=== PATIENT | female | born 1985 | race Caucasian/White ===

== ENCOUNTER 2017-07-07 21:44 | Emergency (ER) | payer MEDICAID ==
--- NOTE | 2017-07-07 22:22 | Emergency Department Record ---
History of Present Illness - General Chief Complaint: Abdominal Pain Stated Complaint: ABDOMINAL PAIN,BLOOD IN BANDAR Time Seen by Provider: 07/07/17 21:46 Source: Patient Mode of Arrival: Ambulatory Limitations: No limitations - History of Present Illness Initial Comments: 32 yo female presents to ED for evaluation of abdominal pain for the past "1.5 to 2 years". Patient reports that she has been evaluated for her symptoms by numerous providers, reports "one doctor thinks its gas, another thinks it's fluid". Patient reports recent constipation symptoms as well that she took mineral oil to relieve at home without success, she is unsure of her last BM. Patient reports that "it feels like I am 9 months ". Patient denies fevers, chills, or recent illness. Patient denies urinary symptoms or current . MD Complaint: Abdominal pain Onset/Timin -: Week(s) Location: Diffuse Quality: Cramping Consistency: Intermittent Associated Symptoms: Nausea - Related Data Home Medications Medication Instructions Recorded Confirmed Last Taken Buprenorphine HCl/Naloxone HCl 1 each SL TID 07/07/17 07/07/17 Unknown [Suboxone 8 mg-2 mg Sl Film] Dicyclomine HCl [Bentyl] 10 mg PO Q8H PRN 07/07/17 07/07/17 Unknown Furosemide [Lasix] 20 mg PO DAILY 07/07/17 07/07/17 Unknown Hydrocortisone [Cortef] 40 mg PO DAILY 07/07/17 07/07/17 Unknown Metformin HCl [Metformin HCl] 500 mg PO BID 07/07/17 07/07/17 Unknown Omeprazole [Omeprazole] 40 mg PO BID 07/07/17 07/07/17 Unknown Ondansetron HCl [Zofran] 8 mg PO Q6H PRN 07/07/17 07/07/17 Unknown Phentermine HCl [Phentermine HCl] 0.5 tab PO DAILY 07/07/17 07/07/17 Unknown Previous Rx's Medication Instructions Recorded Magnesium Citrate 295 ml PO DAILY PRN #10 solution 07/07/17 Allergies Allergy/AdvReac Type Severity Reaction Status Date / Time No Known Drug Allergies Allergy Verified 07/07/17 21:59 Travel Screening - Travel/Exposure Within Last 30 Days Have you traveled within the last 30 days?: No - Travel Symptoms Symptom Screening: None Review of Systems Constitutional: Denies: Chills, Fever, Malaise, Night sweats Eyes: Denies: Eye discharge, Eye pain ENT: Denies: Congestion, Ear pain, Epistaxis Respiratory: Denies: Cough, Dyspnea Cardiovascular: Denies: Chest pain, Dyspnea on exertion Endocrine: Denies: Fatigue, Heat or cold intolerance Gastrointestinal: Reports: Abdominal pain, Constipation, Nausea. Denies: Vomiting Genitourinary: Denies: Incontinence, Retention Musculoskeletal: Denies: Arthralgia, Back pain Skin: Denies: Bruising, Change in color Neurological: Denies: Abnormal gait, Confusion, Headache, Seizure Psychiatric: Denies: Anxiety Hematological/Lymphatic: Denies: Anemia, Blood Clots Past Medical History - SOCIAL HISTORY Smoking Status: Current every day smoker Drug Use Detail:: Opiates - RESPIRATORY Hx Respiratory Disorders: Yes Hx Asthma: Yes - CARDIOVASCULAR Hx Cardio Disorders: No - NEURO Hx Neuro Disorders: Yes Hx Dizziness: Yes Hx Headaches: Yes - GI Hx GI Disorders: Yes Hx Celiac Disease: Yes Hx Reflux: Yes - Hx Genitourinary Disorders: No - ENDOCRINE Hx Endocrine Disorders: Yes Hx Diabetes: Yes Hx Thyroid Disease: Yes Comment:: Adrenal insufficiency - MUSCULOSKELETAL Hx Musculoskeletal Disorders: No - PSYCH Hx Psych Problems: Yes Hx Anxiety: Yes Hx Depression: Yes - HEMATOLOGY/ONCOLOGY Hx Hematology/Oncology Disorders: No Family Medical History Any Significant Family History?: Yes Family Hx Comment (NOT TO BE USED IN PLACE OF ITEMS BELOW): Grandmother, Uncle and Aunt- brain aneurysm Physical Exam - General General Appearance: Alert, Oriented x3, Cooperative, No acute distress, Other ( Patient is resting comfortably conversing with friend at the bedside in no distress) Limitations: No limitations - Head Head exam: Atraumatic, Normocephalic, Normal inspection Head exam detail: negative: Abrasion, Contusion, Gaming's sign, General tenderness, Hematoma, Laceration - Eye Eye exam: Normal appearance. negative: Conjunctival injection, Periorbital swelling, Periorbital tenderness, Scleral icterus - ENT Ear exam: negative: Auricular hematoma, Auricular trauma Nasal Exam: negative: Active bleeding, Discharge, Dried blood, Foreign body Mouth exam: negative: Drooling, Laceration, Tongue elevation - Neck Neck exam: Normal inspection. negative: Meningismus, Tenderness - Respiratory Respiratory exam: Normal lung sounds bilaterally. negative: Rales, Respiratory distress, Rhonchi, Stridor - Cardiovascular Cardiovascular Exam: Regular rate, Normal rhythm, Normal heart sounds - GI/Abdominal GI/Abdominal exam: Soft, Distended, Other (Abdominal examination demonstrates no tenderness on examination). negative: Rebound, Rigid, Tenderness - Rectal Rectal exam: Deferred - exam: Deferred - Extremities Extremities exam: Normal inspection. negative: Calf tenderness, Pedal edema, Tenderness - Neurological Neurological exam: Alert, Oriented X3 - Psychiatric Psychiatric exam: Normal affect, Normal mood - Skin Skin exam: Normal color. negative: Abrasion Type of lesion: negative: abrasion Course Vital Signs 07/07/17 21:53 Temperature 98.2 F Pulse Rate [ 117 H Pulse Ox Probe] Respiratory 20 Rate Blood Pressure 122/91 [Left Arm] Pulse Ox 96 - Reevaluation(s) Reevaluation #1: 07/07/17 22:14 Previous records reviewed from 07/04/17 PCP Visit for joint pain, fatigue, and headache symptoms (no report or abdominal pain) Labs reviewed 07/04/17: WBC 13.1, Hgb 14.3. CRP 0.8. Labs are otherwise grossly unremarkable for an acute process. ED visit 05/13/17 [place]: CT Abdomen and Pelvis: No acute process ED Visit 06/23/17: CT Brain: No acute process Reevaluation #2: 07/07/17 22:29 Patient was seen and examined, abdominal examination is benign. Patient is declining laboratory studies at this time, reports "I just want to know if I have an obstruction". Abdomen radiographs ordered. Reevaluation #3: 07/07/17 23:05 Abdomen: Findings are c/w constipation, no-obstructive gas pattern. Patient has left to walk outside, will update her on her results when she returns. Medical Decision Making - Lab Data Result diagrams: 07/07/17 22:10 07/07/17 22:10 Disposition Disposition: Discharge Clinical Impression: Constipation Qualifiers: Constipation type: unspecified constipation type Qualified Code(s): K59.00 - Constipation, unspecified Disposition: Home, Self-Care Condition: (2) Stable Instructions: Constipation (ED) Additional Instructions: Return to ED if your symptoms worsen or if you have any concerns. Magnesium Citrate as directed. Follow-up with your family doctor in 3-5 days as directed. Prescriptions: Magnesium Citrate 295 ml PO DAILY PRN #10 solution PRN Reason: Constipation Forms: Patient Portal Access Time of Disposition: 23:08 Quality - Quality Measures Quality Measures: N/A - Blood Pressure Screening Does Patient Have Any of the Following: No Blood Pressure Classification: Normal BP Reading Systolic Measurement: 106 Diastolic Measurement: 68 Screening for High Blood Pressure: < Normal BP, F/U Not Required > [G8783]
[2017-07-07 22:45] LABS: URINE APPEARANCE CLEAR; URINE BILIRUBIN NEGATIVE (NEGATIVE); URINE BLOOD MODERATE (NEGATIVE); URINE COLOR YELLOW; URINE GLUCOSE (UA) NEGATIVE (NEGATIVE); URINE KETONE NEGATIVE (NEGATIVE); URINE LEUKOCYTE ESTERASE NEGATIVE (NEGATIVE); URINE NITRITE NEGATIVE (NEGATIVE); URINE PROTEIN NEGATIVE (NEGATIVE); URINE UROBILINOGEN 0.2 E.U./dL (0.20 - 1.00)
[2017-07-07 22:46] LABS: URINE BACTERIA NONE SEEN; URINE EPITHELIAL CELLS 0 - 2 (FEW); URINE WBC 0 - 2 (0-2/hpf)
[2017-07-07 22:50] LABS: HCG,QUALITATIVE URINE NEGATIVE (NEGATIVE)
--- NOTE | 2017-07-08 10:26 | RADIOLOGY REPORT ---
EXAM: ABDOMEN, FOUR VIEWS HISTORY: ABDOMINAL CRAMPING FOR ONE WEEK. TECHNIQUE: Four views of the abdomen were obtained. Comparison: None. FINDINGS: No free air. Abundant fecal material throughout the colon. Small amount of gas throughout nondistended small bowel. No suspicious calcification. IMPRESSION: 1. CONSTIPATION. 2. NO FREE AIR. JOB NUMBER: [id number] MTDD
== END 2017-07-07 23:23 | disposition home or self-care (01) ==
LOC: ER 21:44
DX: K59.00 Constipation, unspecified (principal); R11.0 Nausea; R10.9 Unspecified abdominal pain
CPT/HCPCS: 74020; 81001; 81025; 99283; 99284

== ENCOUNTER 2017-08-14 08:51 | Emergency (ER) | payer MEDICAID ==
[2017-08-14] MEDS ORDERED: 0.9 % SODIUM CHLORIDE 1,000 ML BAG IV ONE (09:16)
[2017-08-14] MEDS ORDERED: DIPHENHYDRAMINE HCL IV 50 MG/ML VIAL IVP ONE (09:17)
[2017-08-14] MEDS ORDERED: METOCLOPRAMIDE HCL 10 MG/2 ML VIAL IVP ONE (09:17)
--- NOTE | 2017-08-14 09:28 | Emergency Department Record ---
History of Present Illness - General Chief Complaint: Abdominal Pain Stated Complaint: CONSTIPATION Time Seen by Provider: 08/14/17 09:03 Source: Patient Mode of Arrival: Ambulatory Limitations: No limitations - History of Present Illness Initial Comments: The patient states she is here due to AP and bloating with constipation for 1.5 years which has been worse for a month. She now is only to have very small bowel movements. She denies any nausea, vomiting, or fever but does have crampy pain off and on. The patient states she was in the ER about a month ago for it here at [facility] and was discharged with a bottle of MG Citrate. Additionally she state she has had a migraine CUI. The patient states she has had similar CUI's for years and they have been worse for 5 months. She has seen her PCP for it and had a CT scan done. Additionally she has had visual changes and double vision which now is not new. She has seen an eye doctor and was told she does have visual issues. The CUI today is not new and is a global thobbing CUI with mild photophobia. There is no neck stiffness, nausea, speech or balance issues and the patient did drive here to [facility]. MD Complaint: Abdominal pain Onset/Timin -: Month(s) Consistency: Constant Improves With: Nothing Worsens With: Nothing Associated Symptoms: Constipation - Related Data Home Medications Medication Instructions Recorded Confirmed Last Taken Levothyroxine Sodium [Synthroid] 50 mcg PO DAILY 08/14/17 08/14/17 08/14/17 Previous Rx's Medication Instructions Recorded Magnesium Citrate 295 ml PO DAILY PRN #10 solution 07/07/17 Docusate Sodium [Colace] 100 mg PO BID #28 cap 08/14/17 Allergies Allergy/AdvReac Type Severity Reaction Status Date / Time No Known Drug Allergies Allergy Verified 07/07/17 21:59 Travel Screening - Travel/Exposure Within Last 30 Days Have you traveled within the last 30 days?: No - Travel/Exposure Within Last Year Have you traveled outside the [place] in the last year?: No - Additonal Travel Details Have you been exposed to anyone with a communicable illness?: No - Travel Symptoms Symptom Screening: None Review of Systems Constitutional: Denies: Chills, Fever Eyes: Denies: Eye discharge ENT: Denies: Congestion Respiratory: Denies: Cough, Dyspnea Past Medical History - SOCIAL HISTORY Smoking Status: Current every day smoker Alcohol Use: None Drug Use: None - RESPIRATORY Hx Respiratory Disorders: Yes Hx Asthma: Yes - CARDIOVASCULAR Hx Cardio Disorders: No - NEURO Hx Neuro Disorders: Yes Hx Dizziness: Yes Hx Headaches: Yes - GI Hx GI Disorders: Yes Hx Celiac Disease: Yes Hx Reflux: Yes - Hx Genitourinary Disorders: No - ENDOCRINE Hx Endocrine Disorders: Yes Hx Diabetes: Yes Hx Thyroid Disease: Yes Comment:: Adrenal insufficiency - MUSCULOSKELETAL Hx Musculoskeletal Disorders: No - PSYCH Hx Psych Problems: Yes Hx Anxiety: Yes Hx Depression: Yes - HEMATOLOGY/ONCOLOGY Hx Hematology/Oncology Disorders: No Family Medical History Any Significant Family History?: No Family Hx Comment (NOT TO BE USED IN PLACE OF ITEMS BELOW): Grandmother, Uncle and Aunt- brain aneurysm Physical Exam - General General Appearance: Alert, Oriented x3, Cooperative, No acute distress - Head Head exam: Atraumatic, Normocephalic, Normal inspection - Eye Eye exam: Normal appearance, PERRL, EOMI - ENT Throat exam: Normal inspection. negative: Tonsillar erythema, Tonsillar exudate - Neck Neck exam: Normal inspection, Full ROM. negative: Meningismus (The neck is very supple. There is a neg Kernig's and Brudsinski's tests.), Tenderness - Respiratory Respiratory exam: Normal lung sounds bilaterally. negative: Respiratory distress - Cardiovascular Cardiovascular Exam: Regular rate, Normal rhythm, Normal heart sounds - GI/Abdominal GI/Abdominal exam: Soft, Distended (mildly.). negative: Guarding, Pulsatile mass, Rebound, Rigid, Tenderness - Extremities Extremities exam: Normal inspection, Full ROM, Normal capillary refill. negative: Tenderness - Neurological Neurological exam: Alert, Normal gait, Oriented X3, Reflexes normal. negative: Abnormal gait, Altered, Motor sensory deficit - Psychiatric Psychiatric exam: Normal affect, Normal mood. negative: Agitated, Anxious, Depressed - Skin Skin exam: negative: Rash Course Vital Signs 08/14/17 08:54 Temperature 97.9 F Pulse Rate 97 H Respiratory 20 Rate Blood Pressure 133/82 Pulse Ox 96 - Reevaluation(s) Reevaluation #1: The patient states she is doing much better at this time. Her CUI has almost completely resolved and she denies any AP or nausea. We are waiting on the CT results. 08/14/17 10:13 Reevaluation #2: The patient is doing very well at this time. She was sleeping when I entered the room and her CUI has resolved. I did explain to her the CT does NOT demonstrate any obstruction or surgical pathology. I also explained her lab results to her and did recommend the need for F/U with her PCP and GI doctors for further eval. 08/14/17 10:51 Medical Decision Making - Data Complexity MDM Data: Labs Ordered and/or Reviewed, X-Ray Ordered and/or Reviewed - Lab Data Result diagrams: 08/14/17 09:15 08/14/17 09:15 - Radiology Data Radiology results: Report reviewed (CT: Neg obstruction, Colonic constipation.) Disposition Disposition: Discharge Clinical Impression: Constipation Qualifiers: Constipation type: unspecified constipation type Qualified Code(s): K59.00 - Constipation, unspecified Disposition: Home, Self-Care Condition: (2) Stable Instructions: Constipation (ED) Additional Instructions: Please take the Colace as directed and also use the Duclox Supp. as directed. Take 1/2 bottle of Mg Citrate in the AM and 1/2 in the evening. Please see your PCP for recheck next week and to have the MRI ordered. Please see your GI doctor also KATHERINE. Return to the ER for any worsening symptoms, pain, fever, or vomiting. Prescriptions: Docusate Sodium [Colace] 100 mg PO BID #28 cap Forms: Patient Portal Access Time of Disposition: 10:48 Quality - Quality Measures Quality Measures: N/A - Blood Pressure Screening View Details: Yes Does Patient Have Any of the Following: No Blood Pressure Classification: Pre-Hypertensive BP Reading Systolic Measurement: 133 Diastolic Measurement: 82 Screening for High Blood Pressure: < Pre-Hypertensive BP, F/U Documented > [ G8950] Pre-Hypertensive Follow-up Interventions: Referral to alternative/primary care provider.
[2017-08-14 09:34] LABS: BASO % 0.1 % (0-6); EOS % 2.7 % (0-6); GRAN % 64.3 % (47-80); HEMATOCRIT 42.8 % (35.0-47.0); HEMOGLOBIN 13.5 gm/dl (11.6-16.0); LYMPH % 25.6 % (16-45); MEAN CELL VOLUME 99.8 fl (81-97); MEAN CORPUSCULAR HEMOGLOBIN 31.5 pg (27-33); MEAN CORPUSCULAR HGB CONC 31.5 g/dl (32-36); MEAN PLATELET VOLUME 8.9 fl (7.4-10.4); MONO % 7.3 % (0-9); PLATELET COUNT 297 K/uL (130-400); RED BLOOD COUNT 4.29 M/uL (3.80-5.40); RED CELL DISTRIBUTION WIDTH 12.9 % (11.5-14.5); WHITE BLOOD COUNT W/O DIFF 8.8 K/uL (4.2-12.2)
[2017-08-14 09:35] LABS: URINE APPEARANCE CLEAR; URINE BILIRUBIN NEGATIVE (NEGATIVE); URINE BLOOD SMALL (NEGATIVE); URINE COLOR YELLOW; URINE GLUCOSE (UA) NEGATIVE (NEGATIVE); URINE KETONE NEGATIVE (NEGATIVE); URINE LEUKOCYTE ESTERASE NEGATIVE (NEGATIVE); URINE NITRITE NEGATIVE (NEGATIVE); URINE PROTEIN NEGATIVE (NEGATIVE); URINE UROBILINOGEN 0.2 E.U./dL (0.20 - 1.00)
[2017-08-14 09:39] LABS: HCG,QUALITATIVE URINE NEGATIVE (NEGATIVE)
[2017-08-14 09:47] LABS: URINE AMORPHOUS SEDIMENT 1+; URINE EPITHELIAL CELLS 0 - 2 (FEW); URINE WBC 0 - 2 (0-2/hpf)
[2017-08-14 09:48] LABS: BLOOD UREA NITROGEN 7 mg/dL (6-20); CREATININE 0.8 mg/dL (0.5-0.9); EST GLOMERULAR FILTRATION RATE > 60 mL/min
[2017-08-14 09:49] LABS: TOTAL PROTEIN 6.5 g/dL (6.6-8.7)
[2017-08-14 09:51] LABS: GLUCOSE,RANDOM 121 mg/dL (74-109)
[2017-08-14 09:53] LABS: ALT/SGPT 41 U/L (<33)
[2017-08-14 09:54] LABS: ALBUMIN 3.9 g/dL (4.0-5.0); ALKALINE PHOSPHATASE 107 U/L (35-104); AST/SGOT 38 U/L (10.0-35.0); BILIRUBIN,DIRECT < 0.2 mg/dL (0-0.3); LIPASE 18 U/L (13-60)
[2017-08-14] MEDS ORDERED: MAGNESIUM CITRATE 296 ML BTL PO ONE (10:49)
--- NOTE | 2017-08-14 21:09 | CT SCAN REPORT ---
EXAM: CT SCAN ABDOMEN/PELVIS WO CONTRAST HISTORY: CONSTIPATION. FATIGUE. TECHNIQUE: Helical CT examination of the abdomen and pelvis is performed without oral or intravenous contrast administration. Lack of oral and IV contrast utilization limits evaluation of the bowel and solid viscera, respectively. COMPARISON: Two views of the abdomen dated 07/07/2017. FINDINGS: There is mild dependent atelectasis in each lung base. There is a band of atelectasis within the medial aspect of the right middle lobe and there is linear scarring vs atelectasis within the lingula. No pleural or pericardial effusion. The heart is not enlarged. There are areas of decreased density scattered within the liver relative to the spleen consistent with steatosis. No definite hepatic mass. The spleen, pancreas , adrenal glands, and kidneys are without focal abnormality. The renal collecting systems are not dilated. The gallbladder is surgically absent. No biliary ductal dilatation is seen. No intraabdominal nor retroperitoneal lymphadenopathy is demonstrated. The vasculature is normal in appearance. There is a dominant follicle within the right ovary measuring 1.8 cm. No other evidence of pelvic mass, lymphadenopathy, or free pelvic fluid. The uterus is in the midline. No intrinsic urinary bladder abnormality. There is a large amount of stool within the colon. No gross bowel dilatation nor definite bowel wall thickening. The appendix is visualized and normal in appearance. No lytic or blastic bone lesion. IMPRESSION: 1. NO CT EVIDENCE OF AN ACUTE INTRAABDOMINAL NOR INTRAPELVIC PROCESS. 2. DOMINANT FOLLICLE WITHIN THE RIGHT OVARY MEASURING 1.8 CM IN DIAMETER. 3. NORMAL APPENDIX. 4. NOT MENTIONED ABOVE IS A TINY FAT-FILLED PARAUMBILICAL HERNIA APPEARING UNCOMPLICATED. 5. STATUS POST CHOLECYSTECTOMY. 6. HEPATIC STEATOSIS. 7. MILD DEPENDENT ATELECTASIS IN EACH LUNG BASE. ATELECTASIS OR LESS LIKELY INFILTRATE IN THE MEDIAL SEGMENT OF THE RIGHT MIDDLE LOBE. LINEAR SCARRING VS. ATELECTASIS IN THE LINGULA. 8. LARGE AMOUNT OF STOOL WITHIN THE COLON. JOB NUMBER: [id number] [facility]
== END 2017-08-14 10:57 | disposition home or self-care (01) ==
LOC: ER 08:51
DX: K59.00 Constipation, unspecified (principal); R53.83 Other fatigue; R51 Headache; H53.149 Visual discomfort, unspecified
CPT/HCPCS: 74176; 80048; 80076; 81001; 81025; 83690; 85025; 96374; 96375; 99284; J1200; J2765; J7030

== ENCOUNTER 2017-08-20 17:49 | Emergency (ER) | payer MEDICAID ==
[2017-08-20 18:51] LABS: INFLUENZA A NEGATIVE (NEGATIVE); INFLUENZA B NEGATIVE (NEGATIVE)
[2017-08-20] MEDS: 0.9 % SODIUM CHLORIDE 1,000 ML BAG IV ONE (20:15)
[2017-08-20 20:23] LABS: URINE APPEARANCE CLEAR; URINE BILIRUBIN NEGATIVE (NEGATIVE); URINE BLOOD MODERATE (NEGATIVE); URINE COLOR YELLOW; URINE GLUCOSE (UA) NEGATIVE (NEGATIVE); URINE KETONE NEGATIVE (NEGATIVE); URINE LEUKOCYTE ESTERASE TRACE (NEGATIVE); URINE NITRITE NEGATIVE (NEGATIVE); URINE PROTEIN NEGATIVE (NEGATIVE); URINE UROBILINOGEN 0.2 E.U./dL (0.20 - 1.00)
[2017-08-20 20:30] LABS: GRAN % 45.4 % (47-80); HEMATOCRIT 41.1 % (35.0-47.0); HEMOGLOBIN 13.2 gm/dl (11.6-16.0); MEAN CELL VOLUME 98.3 fl (81-97); MEAN CORPUSCULAR HEMOGLOBIN 31.6 pg (27-33); MEAN CORPUSCULAR HGB CONC 32.1 g/dl (32-36); MEAN PLATELET VOLUME 8.9 fl (7.4-10.4); MONO % 7.6 % (0-9); PLATELET COUNT 296 K/uL (130-400); RED BLOOD COUNT 4.18 M/uL (3.80-5.40); RED CELL DISTRIBUTION WIDTH 12.5 % (11.5-14.5); WHITE BLOOD COUNT W/O DIFF 10.1 K/uL (4.2-12.2)
[2017-08-20 20:33] LABS: URINE BACTERIA NONE SEEN; URINE RBC 0 - 2 (NONE SEEN); URINE WBC 0 - 2 (0-2/hpf)
[2017-08-20] MEDS: PROMETHAZINE HCL 25 MG in 0.9 % SODIUM CHLORIDE 100ML 100 ML IVPB ONE (20:47)
[2017-08-20] MEDS: KETOROLAC 30 MG/ML VIAL IVP ONE (20:48)
[2017-08-20 20:49] LABS: ALBUMIN 4.1 g/dL (4.0-5.0); ALKALINE PHOSPHATASE 103 U/L (35-104); ALT/SGPT 50 U/L (<33); AST/SGOT 41 U/L (10.0-35.0); BLOOD UREA NITROGEN 3 mg/dL (6-20); CREATININE 0.7 mg/dL (0.5-0.9); EST GLOMERULAR FILTRATION RATE > 60 mL/min; GLUCOSE,RANDOM 100 mg/dL (74-109); TOTAL PROTEIN 6.7 g/dL (6.6-8.7)
[2017-08-20 20:50] LABS: BILIRUBIN,DIRECT < 0.2 mg/dL (0-0.3)
--- NOTE | 2017-08-20 21:53 | Emergency Department Record ---
History of Present Illness - General Chief complaint: Flu Like Symptoms Stated complaint: NAUSEA,DIARRHEA,MIGRAINE Time Seen by Provider: 08/20/17 20:01 Source: Patient Mode of Arrival: Ambulatory Limitations: No limitations - History of Present Illness Initial comments: pt has headaches every day. she had a recent neg head ct at [facility]. she also feels she is dehydrated and wants 2 bags of iv fluids. she also feels she has something in her rectum and she wants it checked MD Complaint: Generalized weakness Onset/Timin -: Month(s) Severity: Moderate Severity scale (1-10): 7 Quality: Aching Consistency: Constant Associated Symptoms: Denies other symptoms - [place] Coma Scale Eye Response: (4) Open spontaneously Motor Response: (6) Obeys commands Verbal Response: (5) Oriented [place] Total: 15 - Related Data Allergies Allergy/AdvReac Type Severity Reaction Status Date / Time No Known Drug Allergies Allergy Verified 07/07/17 21:59 Travel Screening - Travel/Exposure Within Last 30 Days Have you traveled within the last 30 days?: No - Travel/Exposure Within Last Year Have you traveled outside the [place] in the last year?: No - Additonal Travel Details Have you been exposed to anyone with a communicable illness?: No - Travel Symptoms Symptom Screening: None Review of Systems Reviewed: No additional complaints except as noted below Constitutional: Reports: As per HPI, Weakness. Denies: Chills, Fever, Malaise, Night sweats, Weight change Eyes: Reports: As per HPI. Denies: Eye discharge, Eye pain, Photophobia, Vision change ENT: Reports: As per HPI. Denies: Congestion, Dental pain, Ear pain, Epistaxis , Hearing loss, Throat pain Respiratory: Reports: As per HPI. Denies: Cough, Dyspnea, Hemoptysis, Stridor, Wheezes Cardiovascular: Reports: As per HPI. Denies: Arrhythmia, Chest pain, Dyspnea on exertion, Edema, Murmurs, Orthopnea, Palpitations, Paroxysmal nocturnal dyspnea, Rheumatic Fever, Syncope Endocrine: Reports: As per HPI, Fatigue. Denies: Heat or cold intolerance, Polydipsia, Polyuria Gastrointestinal: Reports: As per HPI. Denies: Abdominal pain, Constipation, Diarrhea, Hematemesis, Hematochezia, Melena, Nausea, Vomiting Genitourinary: Reports: As per HPI. Denies: Abnormal menses, Discharge, Dyspareunia, Dysuria, Frequency, Hematuria, Incontinence, Retention, Urgency Musculoskeletal: Reports: As per HPI. Denies: Arthralgia, Back pain, Gout, Joint swelling, Myalgia, Neck pain Skin: Reports: As per HPI. Denies: Bruising, Change in color, Change in hair/ nails, Lesions, Pruritus, Rash Neurological: Reports: As per HPI, Headache. Denies: Abnormal gait, Confusion, Numbness, Paresthesias, Seizure, Tingling, Tremors, Vertigo, Weakness Psychiatric: Reports: As per HPI. Denies: Anxiety, Auditory hallucinations, Depression, Homicidal thoughts, Suicidal thoughts, Visual hallucinations Hematological/Lymphatic: Reports: As per HPI. Denies: Anemia, Blood Clots, Easy bleeding, Easy bruising, Swollen glands Past Medical History - SOCIAL HISTORY Smoking Status: Current every day smoker Alcohol Use: None Drug Use: None - RESPIRATORY Hx Respiratory Disorders: Yes Hx Asthma: Yes - CARDIOVASCULAR Hx Cardio Disorders: No - NEURO Hx Neuro Disorders: Yes Hx Dizziness: Yes Hx Headaches: Yes - GI Hx GI Disorders: Yes Hx Celiac Disease: Yes Hx Reflux: Yes - Hx Genitourinary Disorders: No - ENDOCRINE Hx Endocrine Disorders: Yes Hx Diabetes: Yes Hx Thyroid Disease: Yes Comment:: Adrenal insufficiency - MUSCULOSKELETAL Hx Musculoskeletal Disorders: No - PSYCH Hx Psych Problems: Yes Hx Anxiety: Yes Hx Depression: Yes - HEMATOLOGY/ONCOLOGY Hx Hematology/Oncology Disorders: No Family Medical History Any Significant Family History?: Yes Family Hx Comment (NOT TO BE USED IN PLACE OF ITEMS BELOW): Grandmother, Uncle and Aunt- brain aneurysm Physical Exam - General General Appearance: Alert, Oriented x3, Cooperative, Mild distress - Head Head exam: Normal inspection - Eye Eye exam: Normal appearance, PERRL, EOMI Pupils: Normal accommodation - ENT ENT exam: Normal exam, Mucous membranes moist, Normal external ear exam, Normal orophraynx, TM's normal bilaterally Ear exam: Normal external inspection. negative: External canal tenderness Nasal Exam: Normal inspection. negative: Discharge, Sinus tenderness Mouth exam: Normal external inspection, Tongue normal Teeth exam: Normal inspection. negative: Dental caries Throat exam: Normal inspection. negative: Tonsillar erythema, Tonsillar exudate - Neck Neck exam: Normal inspection, Full ROM. negative: Tenderness - Respiratory Respiratory exam: Normal lung sounds bilaterally. negative: Respiratory distress - Cardiovascular Cardiovascular Exam: Regular rate, Normal rhythm, Normal heart sounds - GI/Abdominal GI/Abdominal exam: Soft, Normal bowel sounds. negative: Tenderness - Rectal Rectal exam: Normal inspection, Normal rectal tone - exam: Deferred - Extremities Extremities exam: Normal inspection, Full ROM, Normal capillary refill. negative: Tenderness - Back Back exam: Reports: Normal inspection, Full ROM. Denies: Muscle spasm, Rash noted, Tenderness - Neurological Neurological exam: Alert, Normal gait, Oriented X3, Reflexes normal - Psychiatric Psychiatric exam: Normal affect, Normal mood - Skin Skin exam: Dry, Intact, Normal color, Warm Course Vital Signs 08/20/17 08/20/17 18:33 21:22 Temperature 97.8 F 98.2 F Pulse Rate 85 Pulse Rate [ 80 Pulse Ox Probe] Respiratory 18 18 Rate Blood Pressure 125/90 Blood Pressure 137/92 [Left Arm] Pulse Ox 95 96 Medical Decision Making - Lab Data Result diagrams: 08/20/17 20:15 08/20/17 20:15 Lab Results 08/20/17 08/20/17 08/20/17 Range/Units 18:25 20:06 20:15 WBC 10.1 (4.2-12.2) K/uL RBC 4.18 (3.80-5.40) M/uL Hgb 13.2 (11.6-16.0) gm/dl Hct 41.1 (35.0-47.0) % MCV 98.3 H (81-97) fl MCH 31.6 (27-33) pg MCHC 32.1 (32-36) g/dl RDW 12.5 (11.5-14.5) % Plt Count 296 (130-400) K/uL MPV 8.9 (7.4-10.4) fl Gran % 45.4 L (47-80) % Lymphocytes % 45.0 (16-45) % Monocytes % 7.6 (0-9) % Eosinophils % 2.0 (0-6) % Basophils % 0.0 (0-6) % Sodium (136-145) mmol/L Potassium (3.4-4.5) mmol/L Chloride (98-107) mmol/L Carbon Dioxide (22-29) mmol/L Anion Gap (7-16) BUN (6-20) mg/dL Creatinine (0.5-0.9) mg/dL Estimated GFR mL/min Random Glucose (74-109) mg/dL Calcium (8.6-10.0) mg/dL Total Bilirubin Cancelled Direct Bilirubin Cancelled AST Cancelled ALT Cancelled Alkaline Phosphatase Cancelled Total Protein Cancelled Albumin Cancelled Urine Color Urine Appearance Urine pH (5.0-8.0) Ur Specific [place] (1.002-1.030) Urine Protein (NEGATIVE) Urine Glucose (UA) (NEGATIVE) Urine Ketones (NEGATIVE) Urine Blood (NEGATIVE) Urine Nitrite (NEGATIVE) Urine Bilirubin (NEGATIVE) Urine Urobilinogen (0.20 - 1.00) E.U./dL Ur Leukocyte Esterase (NEGATIVE) Urine RBC (NONE SEEN) Urine WBC (0-2/hpf) Ur Epithelial Cells (FEW) Urine Bacteria Influenza Type A Ag Negative (NEGATIVE) Influenza Type B Ag Negative (NEGATIVE) 08/20/17 08/20/17 Range/Units 20:15 20:15 WBC (4.2-12.2) K/uL RBC (3.80-5.40) M/uL Hgb (11.6-16.0) gm/dl Hct (35.0-47.0) % MCV (81-97) fl MCH (27-33) pg MCHC (32-36) g/dl RDW (11.5-14.5) % Plt Count (130-400) K/uL MPV (7.4-10.4) fl Gran % (47-80) % Lymphocytes % (16-45) % Monocytes % (0-9) % Eosinophils % (0-6) % Basophils % (0-6) % Sodium 140 (136-145) mmol/L Potassium 3.5 (3.4-4.5) mmol/L Chloride 96 L (98-107) mmol/L Carbon Dioxide 31.0 H (22-29) mmol/L Anion Gap 13.0 (7-16) BUN 3 L (6-20) mg/dL Creatinine 0.7 (0.5-0.9) mg/dL Estimated GFR > 60 mL/min Random Glucose 100 (74-109) mg/dL Calcium 9.1 (8.6-10.0) mg/dL Total Bilirubin 0.20 Direct Bilirubin < 0.2 AST 41 H ALT 50 H Alkaline Phosphatase 103 Total Protein 6.7 Albumin 4.1 Urine Color Yellow Urine Appearance Clear Urine pH 7.0 (5.0-8.0) Ur Specific [place] <= 1.005 (1.002-1.030) Urine Protein Negative (NEGATIVE) Urine Glucose (UA) Negative (NEGATIVE) Urine Ketones Negative (NEGATIVE) Urine Blood Moderate (NEGATIVE) Urine Nitrite Negative (NEGATIVE) Urine Bilirubin Negative (NEGATIVE) Urine Urobilinogen 0.2 (0.20 - 1.00) E.U./dL Ur Leukocyte Esterase Trace H (NEGATIVE) Urine RBC 0 - 2 (NONE SEEN) Urine WBC 0 - 2 (0-2/hpf) Ur Epithelial Cells 3 - 6 (FEW) Urine Bacteria None seen Influenza Type A Ag (NEGATIVE) Influenza Type B Ag (NEGATIVE) Disposition Disposition: Discharge Clinical Impression: Migraine Qualifiers: Migraine type: without aura Status migrainosus presence: without status migrainosus Intractability: not intractable Qualified Code(s): G43.009 - Migraine without aura, not intractable, without status migrainosus Disposition: Home, Self-Care Condition: (1) Good Instructions: Migraine Headache (ED) Additional Instructions: follow up with neurologist. return sooner if worse. follow up with gi doctor Quality - Quality Measures Quality Measures: N/A - Blood Pressure Screening Does Patient Have Any of the Following: No Blood Pressure Classification: Hypertensive Reading Systolic Measurement: 125 Diastolic Measurement: 90 Screening for High Blood Pressure: < Pre-Hypertensive BP, F/U Documented > [ G8950] Pre-Hypertensive Follow-up Interventions: Follow-up with rescreen every year.
== END 2017-08-20 22:19 | disposition home or self-care (01) ==
LOC: ER 17:49
DX: G43.009 Migraine without aura, not intractable, without status migrainosus (principal); R53.1 Weakness; R11.0 Nausea; R19.7 Diarrhea, unspecified
CPT/HCPCS: 80048; 80076; 81001; 85025; 87400; 96374; 96375; 99284; J1885; J2550; J7030

== ENCOUNTER 2017-08-26 18:03 | Emergency (ER) | payer MEDICAID ==
--- NOTE | 2017-08-26 18:44 | Emergency Department Record ---
History of Present Illness - General Chief Complaint: Headache Migraine Stated Complaint: MIGRAINE,FLUCTUATING HEART RATE,CONFUSION Time Seen by Provider: 08/26/17 18:39 Source: Patient Mode of Arrival: Ambulatory Limitations: No limitations - History of Present Illness Initial Comments: 32 yo female presents to ED for evaluation of numerous complaint, including: intermittent headaches since April 2017, intermittent fluctuations in her heart beat for several months, and intermittent confusion/difficulty in concentrating for several months. Patient denies fevers, chills, neck stiffness symptoms, or recent illness. Patient denies nausea/vomiting symptoms , denies abdominal pain. Patient reports a history of hypothyroidism and migraine headaches. When asked what her PCP believes if going on with her, patient reports "I don't know, she doesn't tell me anything". Complaint: Headache Onset/Timin -: Days(s) Onset Description: Gradual Location: Occipital Severity: Mild Severity scale (1-10): 9 Quality: Aching, Similar to previous headaches Consistency: Constant Improves With: Nothing Worsens With: Light Associated Symptoms: Photophobia Treatments Prior to Arrival: None - Related Data Allergies Allergy/AdvReac Type Severity Reaction Status Date / Time No Known Drug Allergies Allergy Verified 07/07/17 21:59 Travel Screening - Travel/Exposure Within Last 30 Days Have you traveled within the last 30 days?: No Review of Systems Constitutional: Denies: Chills, Fever, Malaise, Night sweats Eyes: Reports: Photophobia. Denies: Eye discharge, Eye pain ENT: Denies: Congestion, Epistaxis, Hearing loss Respiratory: Denies: Cough, Dyspnea Cardiovascular: Reports: Palpitations. Denies: Chest pain, Dyspnea on exertion Endocrine: Denies: Fatigue, Heat or cold intolerance Gastrointestinal: Denies: Nausea, Vomiting Genitourinary: Denies: Incontinence, Retention Musculoskeletal: Denies: Arthralgia, Back pain, Gout, Joint swelling Skin: Denies: Bruising, Change in color Neurological: Reports: Confusion, Headache. Denies: Abnormal gait Psychiatric: Denies: Anxiety Hematological/Lymphatic: Denies: Anemia, Blood Clots Past Medical History - SOCIAL HISTORY Smoking Status: Current every day smoker Alcohol Use: None Drug Use: None - RESPIRATORY Hx Respiratory Disorders: Yes Hx Asthma: Yes - CARDIOVASCULAR Hx Cardio Disorders: No - NEURO Hx Neuro Disorders: Yes Hx Dizziness: Yes Hx Headaches: Yes - GI Hx GI Disorders: Yes Hx Celiac Disease: Yes Hx Reflux: Yes - Hx Genitourinary Disorders: No - ENDOCRINE Hx Endocrine Disorders: Yes Hx Diabetes: Yes Hx Thyroid Disease: Yes Comment:: Adrenal insufficiency - MUSCULOSKELETAL Hx Musculoskeletal Disorders: No - PSYCH Hx Psych Problems: Yes Hx Anxiety: Yes Hx Depression: Yes - HEMATOLOGY/ONCOLOGY Hx Hematology/Oncology Disorders: No Family Medical History Any Significant Family History?: Yes Family Hx Comment (NOT TO BE USED IN PLACE OF ITEMS BELOW): Grandmother, Uncle and Aunt- brain aneurysm Physical Exam - General General Appearance: Alert, Oriented x3, Cooperative, No acute distress Limitations: No limitations - Head Head exam: Atraumatic, Normocephalic, Normal inspection Head exam detail: negative: Abrasion, Contusion, Gaming's sign, General tenderness, Hematoma, Laceration - Eye Eye exam: Normal appearance. negative: Conjunctival injection, Periorbital swelling, Periorbital tenderness, Scleral icterus - ENT Ear exam: negative: Auricular hematoma, Auricular trauma Nasal Exam: negative: Active bleeding, Discharge, Dried blood, Foreign body Mouth exam: negative: Drooling, Laceration, Muffled voice, Tongue elevation - Neck Neck exam: Normal inspection. negative: Meningismus, Tenderness - Respiratory Respiratory exam: Normal lung sounds bilaterally. negative: Respiratory distress, Rhonchi, Stridor, Wheezes - Cardiovascular Cardiovascular Exam: Regular rate, Normal rhythm, Normal heart sounds, Other ( Pulse 99-102 on examination) - GI/Abdominal GI/Abdominal exam: Soft. negative: Rebound, Rigid, Tenderness - Rectal Rectal exam: Deferred - exam: Deferred - Extremities Extremities exam: Normal inspection. negative: Pedal edema, Tenderness - Neurological Neurological exam: Alert, Normal gait, Oriented X3 - Psychiatric Psychiatric exam: Flat affect - Skin Skin exam: Normal color. negative: Abrasion Type of lesion: negative: abrasion Course Vital Signs 08/26/17 08/26/17 18:19 18:29 Temperature 97.6 F Pulse Rate 110 H Pulse Rate [ 115 H Pulse Ox Probe] Respiratory 18 20 Rate Blood Pressure 118/77 Blood Pressure 118/77 [Left Arm] Pulse Ox 96 95 - Reevaluation(s) Reevaluation #1: 08/26/17 18:41 Patient was seen and examined, reports intermittent headache symptoms since April associated with difficulty concentrating. Patient also reports intermittent variability of her heart rate for several months as well. I discussed performing laboratory studies and an influenza swab for her symptoms, patient declines stating "if your not going to get a CT of my head, I would rather go home and rest". Patient reports that she is upset that she was not updated on the results of her recent CT imaging of the abdomen and pelvis and that she had "to get a disc and put it in my own computer at home. No told me that I have a fatty liver or a hernia." I offered to review the patient's CT imaging from 1 1/2 weeks ago, patient declined stating that she just wants to go home and rest. I offered to contact the patient's PCP as well, patient declined. Per patient request, will discharge home at this time. EKG: NSR 100 Normal axis, normal intervals Nonspecific ST-T wave changes are present. Disposition Disposition: Discharge Clinical Impression: Headache Qualifiers: Headache type: unspecified Headache chronicity pattern: acute headache Intractability: not intractable Qualified Code(s): R51 - Headache Disposition: Home, Self-Care Condition: (2) Stable Instructions: Acute Headache (ED) Additional Instructions: Return to ED if your symptoms worsen or if you have any concerns. Follow-up with your family doctor in 3-5 days for further evaluation of your symptoms. Forms: Patient Portal Access Time of Disposition: 18:41 Quality - Quality Measures Quality Measures: N/A - Blood Pressure Screening Does Patient Have Any of the Following: No Blood Pressure Classification: Normal BP Reading Systolic Measurement: 118 Diastolic Measurement: 77 Screening for High Blood Pressure: < Normal BP, F/U Not Required > [G8783]
== END 2017-08-26 18:53 | disposition home or self-care (01) ==
LOC: ER 18:03
DX: R51 Headache (principal); R06.00 Dyspnea, unspecified; H53.149 Visual discomfort, unspecified; R41.0 Disorientation, unspecified; R00.8 Other abnormalities of heart beat; F17.210 Nicotine dependence, cigarettes, uncomplicated
CPT/HCPCS: 99282

== ENCOUNTER 2017-09-05 11:28 | Emergency (ER) | payer MEDICAID | END 2017-09-05 12:23 | disposition left against medical advice (07) | LOC: ER 11:28 | DX: Z53.20 Procedure and treatment not carried out because of patient's decision for unspecified reasons (principal) ==

== ENCOUNTER 2017-09-07 17:59 | Emergency (ER) | payer MEDICAID ==
--- NOTE | 2017-09-07 18:18 | Emergency Department Record ---
History of Present Illness - General Chief Complaint: Chest Pain Stated Complaint: FAINTED Time Seen by Provider: 09/07/17 18:03 Source: Patient Mode of Arrival: EMS Limitations: No limitations Travel/Exposure to [place] Within 21 Days of Symptoms: No - History of Present Illness Initial Comments: 32 yo female presents to ED for evaluation of possible syncope prior to arrival. When asked about what brought her to the ED tonight, patient reports "All of my undiagnosed health problems" . Patient reports that she was running a bath, then reports "I don't remember what happened after that". Patient denies a history of heart or lung disease, but does report a history of Moo' s and migraine headaches. Patient also reports several chronic issues, including; abdominal pain "for a while", worsening migraines for months with change in vision, body aches all over, "I think my body is shutting down on me". Complaint: Other Onset/Timin -: Minutes(s) Prodromal Symptoms: None Witnessed: No Injuries Sustained Associated with Event: None Current Symptoms: Abdominal pain, Headache, Weakness Treatments Prior to Arrival: None - [place] Coma Scale Eye Response: (4) Open spontaneously Motor Response: (6) Obeys commands Verbal Response: (5) Oriented [place] Total: 15 - Related Data Allergies Allergy/AdvReac Type Severity Reaction Status Date / Time No Known Drug Allergies Allergy Verified 07/07/17 21:59 Review of Systems Constitutional: Reports: Weakness. Denies: Chills, Fever, Malaise, Night sweats Eyes: Denies: Eye discharge, Eye pain ENT: Denies: Congestion, Ear pain, Epistaxis Respiratory: Denies: Cough, Dyspnea Cardiovascular: Reports: Syncope. Denies: Dyspnea on exertion, Edema Endocrine: Reports: Fatigue. Denies: Heat or cold intolerance Gastrointestinal: Reports: Abdominal pain, Nausea. Denies: Vomiting Genitourinary: Denies: Incontinence, Retention Musculoskeletal: Denies: Arthralgia, Back pain, Gout, Joint swelling Skin: Denies: Bruising, Change in color Neurological: Reports: Headache. Denies: Abnormal gait, Confusion, Tingling Psychiatric: Denies: Anxiety Hematological/Lymphatic: Denies: Anemia, Blood Clots Past Medical History - SOCIAL HISTORY Smoking Status: Current every day smoker Drug Use: None - RESPIRATORY Hx Respiratory Disorders: Yes Hx Asthma: Yes - CARDIOVASCULAR Hx Cardio Disorders: No - NEURO Hx Neuro Disorders: Yes Hx Dizziness: Yes Hx Headaches: Yes - GI Hx GI Disorders: Yes Hx Celiac Disease: Yes Hx Reflux: Yes - Hx Genitourinary Disorders: No - ENDOCRINE Hx Endocrine Disorders: Yes Hx Diabetes: Yes Hx Thyroid Disease: Yes Comment:: Adrenal insufficiency - MUSCULOSKELETAL Hx Musculoskeletal Disorders: No - PSYCH Hx Psych Problems: Yes Hx Anxiety: Yes Hx Depression: Yes - HEMATOLOGY/ONCOLOGY Hx Hematology/Oncology Disorders: No Family Medical History Family Hx Comment (NOT TO BE USED IN PLACE OF ITEMS BELOW): Grandmother, Uncle and Aunt- brain aneurysm Physical Exam - General General Appearance: Alert, Oriented x3, Cooperative, Mild distress Limitations: No limitations - Head Head exam: Atraumatic, Normocephalic, Normal inspection Head exam detail: negative: Abrasion, Contusion, Gaming's sign, General tenderness, Hematoma, Laceration - Eye Eye exam: Normal appearance. negative: Conjunctival injection, Periorbital swelling, Periorbital tenderness, Scleral icterus - ENT Ear exam: negative: Auricular hematoma, Auricular trauma Nasal Exam: negative: Active bleeding, Discharge, Dried blood, Foreign body Mouth exam: negative: Drooling, Laceration, Tongue elevation - Neck Neck exam: Normal inspection. negative: Meningismus, Tenderness - Respiratory Respiratory exam: Normal lung sounds bilaterally. negative: Respiratory distress, Rhonchi, Stridor, Wheezes - Cardiovascular Cardiovascular Exam: Regular rate, Normal rhythm, Normal heart sounds - GI/Abdominal GI/Abdominal exam: Soft. negative: Distended, Rebound, Rigid, Tenderness - Rectal Rectal exam: Deferred - exam: Deferred - Extremities Extremities exam: Normal inspection. negative: Calf tenderness, Pedal edema, Tenderness - Back Back exam: Denies: CVA tenderness (R), CVA tenderness (L) - Neurological Neurological exam: Alert, Normal gait, Oriented X3 - Psychiatric Psychiatric exam: Normal affect, Normal mood - Skin Skin exam: Normal color. negative: Abrasion Type of lesion: negative: abrasion Course - Reevaluation(s) Reevaluation #1: 09/07/17 18:18 EKG: NSR 90 Normal axis, normal intervals T wave inversions V1-V5 Reevaluation #2: 09/07/17 18:59 Labs reviewed and are grossly unremarkable for an acute process. In to answer questions that that the patient's SO has with nursing staff present as witness, patient reports that we are not treating her adrenal insufficiency in the emergency department and we are "doing the same blood tests that you guys always do". I explained to the patient that >95% causes are cardiogenic, that she were were performing a cardiac evaluation tonight. Patient states "I have a hernia too that you are not doing anything about". Juliette-umbical region was palpated with no evidence for hernia. Patient then states "you told me I was fine to go home 2 years ago after I went out to smoke a cigarette". I replied that I do not remember seeing the patient two years ago nor do I recall any interaction with her at that time. I again explained to the patient the limitations of the ED and that we are able to exclude life- threatening disease states, however, at times we cannot find the exact reason for the constellation of her symptoms. Patient reports that she does not want to stay for her repeat cardiac enzyme test at 3 hours, and that she would like to go at this time. Nursing staff was present for the entire discussion with the patient. Medical Decision Making - Lab Data Result diagrams: 09/07/17 18:10 09/07/17 18:10 Disposition Disposition: Other Clinical Impression: Syncope Qualifiers: Syncope type: unspecified Qualified Code(s): R55 - Syncope and collapse Disposition: Against Medical Advice Instructions: Syncope (ED) Additional Instructions: Return to ED if you wish to be evaluated for you syncope symptoms. Follow-up with your family doctor in 1-3 days as directed. Forms: Patient Portal Access Time of Disposition: 19:06 Quality - Quality Measures Quality Measures: N/A - Blood Pressure Screening Does Patient Have Any of the Following: Active Dx of HTN Systolic Measurement: ~ Screening for High Blood Pressure: Patient Exclusion, Hx of HTN [G9744]
[2017-09-07 18:31] LABS: EOS % 0.5 % (0-6); GRAN % 68.9 % (47-80); HEMATOCRIT 42.1 % (35.0-47.0); HEMOGLOBIN 14.1 gm/dl (11.6-16.0); LYMPH % 26.1 % (16-45); MEAN CELL VOLUME 96.8 fl (81-97); MEAN CORPUSCULAR HEMOGLOBIN 32.4 pg (27-33); MEAN CORPUSCULAR HGB CONC 33.5 g/dl (32-36); MEAN PLATELET VOLUME 9.3 fl (7.4-10.4); MONO % 4.5 % (0-9); PLATELET COUNT 299 K/uL (130-400); RED BLOOD COUNT 4.35 M/uL (3.80-5.40); RED CELL DISTRIBUTION WIDTH 12.5 % (11.5-14.5); WHITE BLOOD COUNT W/O DIFF 11.3 K/uL (4.2-12.2)
[2017-09-07 18:43] LABS: INFLUENZA A NEGATIVE (NEGATIVE); INFLUENZA B NEGATIVE (NEGATIVE)
[2017-09-07 18:45] LABS: BLOOD UREA NITROGEN 7 mg/dL (6-20); CREATININE 0.7 mg/dL (0.5-0.9); EST GLOMERULAR FILTRATION RATE > 60 mL/min
[2017-09-07 18:47] LABS: GLUCOSE,RANDOM 111 mg/dL (74-109)
[2017-09-07 18:50] LABS: ALB/GLOB RATIO 1.3 (1.1-1.8); ALKALINE PHOSPHATASE 124 U/L (35-104); ALT/SGPT 31 U/L (<33); AST/SGOT 34 U/L (10.0-35.0)
== END 2017-09-07 19:40 | disposition left against medical advice (07) ==
LOC: ER 17:59
DX: R55 Syncope and collapse (principal); R10.33 Periumbilical pain; R51 Headache; R53.1 Weakness; E27.1 Primary adrenocortical insufficiency; F17.210 Nicotine dependence, cigarettes, uncomplicated
CPT/HCPCS: 80053; 84484; 85025; 87400; 93005; 93010; 99284

== ENCOUNTER 2017-10-21 16:30 | Emergency (ER) | payer MEDICAID ==
--- NOTE | 2017-10-21 17:24 | Emergency Department Record ---
History of Present Illness - General Chief complaint: ENT Stated complaint: SORE THROAT,CHEST CONGESTION,RT LEG/HIP PAIN Time Seen by Provider: 10/21/17 17:09 Source: Patient Mode of Arrival: Ambulatory Limitations: No limitations - History of Present Illness Initial comments: pt has green congestion, sinus pressure, cough, sore throat. pt is currently wearing a 21 day monitor for tachy rhythms complaint: Ear pain, Sore throat Onset/Timin -: Days(s) Location: Throat Severity: Mild Consistency: Constant Improves with: None Worsens with: None Associated Symptoms: Cough, Sore throat - Related Data Home Medications Medication Instructions Recorded Confirmed Last Taken Estradiol 1 each TD ASDIR 10/21/17 10/21/17 Unknown Previous Rx's Medication Instructions Recorded Amoxicillin 500Mg Capsule [Amoxil] 500 mg PO TID #30 tab 10/21/17 Allergies Allergy/AdvReac Type Severity Reaction Status Date / Time No Known Drug Allergies Allergy Verified 10/21/17 16:51 Travel Screening - Travel/Exposure Within Last 30 Days Have you traveled within the last 30 days?: No Review of Systems Reviewed: No additional complaints except as noted below Constitutional: Reports: As per HPI. Denies: Chills, Fever, Malaise, Night sweats, Weakness, Weight change Eyes: Reports: As per HPI. Denies: Eye discharge, Eye pain, Photophobia, Vision change ENT: Reports: As per HPI, Throat pain. Denies: Congestion, Dental pain, Ear pain, Epistaxis, Hearing loss Respiratory: Reports: As per HPI. Denies: Cough, Dyspnea, Hemoptysis, Stridor, Wheezes Cardiovascular: Reports: As per HPI. Denies: Arrhythmia, Chest pain, Dyspnea on exertion, Edema, Murmurs, Orthopnea, Palpitations, Paroxysmal nocturnal dyspnea, Rheumatic Fever, Syncope Endocrine: Reports: As per HPI. Denies: Fatigue, Heat or cold intolerance, Polydipsia, Polyuria Gastrointestinal: Reports: As per HPI. Denies: Abdominal pain, Constipation, Diarrhea, Hematemesis, Hematochezia, Melena, Nausea, Vomiting Genitourinary: Reports: As per HPI. Denies: Abnormal menses, Discharge, Dyspareunia, Dysuria, Frequency, Hematuria, Incontinence, Retention, Urgency Musculoskeletal: Reports: As per HPI. Denies: Arthralgia, Back pain, Gout, Joint swelling, Myalgia, Neck pain Skin: Reports: As per HPI. Denies: Bruising, Change in color, Change in hair/ nails, Lesions, Pruritus, Rash Neurological: Reports: As per HPI. Denies: Abnormal gait, Confusion, Headache, Numbness, Paresthesias, Seizure, Tingling, Tremors, Vertigo, Weakness Psychiatric: Reports: As per HPI. Denies: Anxiety, Auditory hallucinations, Depression, Homicidal thoughts, Suicidal thoughts, Visual hallucinations Hematological/Lymphatic: Reports: As per HPI. Denies: Anemia, Blood Clots, Easy bleeding, Easy bruising, Swollen glands Past Medical History - SOCIAL HISTORY Smoking Status: Current every day smoker Alcohol Use: None Drug Use: None - RESPIRATORY Hx Respiratory Disorders: Yes Hx Asthma: Yes - CARDIOVASCULAR Hx Cardio Disorders: No - NEURO Hx Neuro Disorders: Yes Hx Dizziness: Yes Hx Headaches: Yes - GI Hx GI Disorders: Yes Hx Celiac Disease: Yes Hx Reflux: Yes - Hx Genitourinary Disorders: Yes Comment:: follicular ovarian cyst, pt states she's in menopause - ENDOCRINE Hx Endocrine Disorders: Yes Hx Diabetes: Yes Hx Thyroid Disease: Yes Comment:: Adrenal insufficiency - MUSCULOSKELETAL Hx Musculoskeletal Disorders: No - PSYCH Hx Psych Problems: Yes Hx Anxiety: Yes Hx Depression: Yes - HEMATOLOGY/ONCOLOGY Hx Hematology/Oncology Disorders: No Family Medical History Any Significant Family History?: Yes Family Hx Comment (NOT TO BE USED IN PLACE OF ITEMS BELOW): Grandmother, Uncle and Aunt- brain aneurysm Course Vital Signs 10/21/17 16:51 Temperature 97.6 F Pulse Rate 115 H Respiratory 20 Rate Blood Pressure 127/93 Pulse Ox 95 Disposition Disposition: Discharge Clinical Impression: Sinus infection Qualifiers: Sinusitis location: maxillary Chronicity: acute Recurrence: non-recurrent Qualified Code(s): J01.00 - Acute maxillary sinusitis, unspecified Disposition: Home, Self-Care Condition: (1) Good Instructions: Sinusitis (ED) Additional Instructions: follow up with family doctor. return sooner if worse Prescriptions: Amoxicillin 500Mg Capsule [Amoxil] 500 mg PO TID #30 tab Quality - Quality Measures Quality Measures: N/A - Blood Pressure Screening Does Patient Have Any of the Following: No Blood Pressure Classification: Hypertensive Reading Systolic Measurement: 127 Diastolic Measurement: 93 Screening for High Blood Pressure: < Pre-Hypertensive BP, F/U Documented > [ G8950] Pre-Hypertensive Follow-up Interventions: Follow-up with rescreen every year.
== END 2017-10-21 17:44 | disposition home or self-care (01) ==
LOC: ER 16:30
DX: J01.00 Acute maxillary sinusitis, unspecified (principal); R05 Cough; J02.9 Acute pharyngitis, unspecified; R00.0 Tachycardia, unspecified; F17.210 Nicotine dependence, cigarettes, uncomplicated
CPT/HCPCS: 99282

== ENCOUNTER 2017-10-25 20:48 | Emergency (ER) | payer MEDICAID ==
[2017-10-25] MEDS ORDERED: DIPHENHYDRAMINE HCL 25 MG CAPSULE PO ONE (21:25)
[2017-10-25] MEDS ORDERED: PREDNISONE 20 MG TAB PO ONE (21:25)
--- NOTE | 2017-10-25 21:47 | Emergency Department Record ---
History of Present Illness - General Chief complaint: ENT Stated complaint: SORE THROAT Time Seen by Provider: 10/25/17 21:18 Source: Patient Mode of Arrival: Ambulatory Limitations: No limitations - History of Present Illness Initial comments: pt has been on amoxicillin for 4 days for a sore throat and cough. she feels she is getting no better and in fact she thinks shes worse. she has a productive cough with blood in it that looks like old blood. she feels like her throat is sorer and closing up. she is hoarse MD complaint: Difficulty swallowing, Sore throat Onset/Timin -: Days(s) Location: Throat Severity scale (1-10): 6 Quality: Sharp, Stabbing Consistency: Getting worse Worsens with: Swallowing Associated Symptoms: Cough, Sore throat - Related Data Previous Rx's Medication Instructions Recorded Amoxicillin 500Mg Capsule [Amoxil] 500 mg PO TID #30 tab 10/21/17 Azithromycin [Zithromax] 250 mg PO DAILY #6 tab 10/25/17 Allergies Allergy/AdvReac Type Severity Reaction Status Date / Time No Known Drug Allergies Allergy Verified 10/21/17 16:51 Travel Screening - Travel/Exposure Within Last 30 Days Have you traveled within the last 30 days?: No - Travel Symptoms Symptom Screening: None Review of Systems Reviewed: No additional complaints except as noted below Constitutional: Reports: As per HPI. Denies: Chills, Fever, Malaise, Night sweats, Weakness, Weight change Eyes: Reports: As per HPI. Denies: Eye discharge, Eye pain, Photophobia, Vision change ENT: Reports: As per HPI, Congestion, Throat pain. Denies: Dental pain, Ear pain, Epistaxis, Hearing loss Respiratory: Reports: As per HPI, Cough, Hemoptysis. Denies: Dyspnea, Stridor, Wheezes Cardiovascular: Reports: As per HPI. Denies: Arrhythmia, Chest pain, Dyspnea on exertion, Edema, Murmurs, Orthopnea, Palpitations, Paroxysmal nocturnal dyspnea, Rheumatic Fever, Syncope Endocrine: Reports: As per HPI. Denies: Fatigue, Heat or cold intolerance, Polydipsia, Polyuria Gastrointestinal: Reports: As per HPI. Denies: Abdominal pain, Constipation, Diarrhea, Hematemesis, Hematochezia, Melena, Nausea, Vomiting Genitourinary: Reports: As per HPI. Denies: Abnormal menses, Discharge, Dyspareunia, Dysuria, Frequency, Hematuria, Incontinence, Retention, Urgency Musculoskeletal: Reports: As per HPI. Denies: Arthralgia, Back pain, Gout, Joint swelling, Myalgia, Neck pain Skin: Reports: As per HPI. Denies: Bruising, Change in color, Change in hair/ nails, Lesions, Pruritus, Rash Neurological: Reports: As per HPI. Denies: Abnormal gait, Confusion, Headache, Numbness, Paresthesias, Seizure, Tingling, Tremors, Vertigo, Weakness Psychiatric: Reports: As per HPI. Denies: Anxiety, Auditory hallucinations, Depression, Homicidal thoughts, Suicidal thoughts, Visual hallucinations Hematological/Lymphatic: Reports: As per HPI. Denies: Anemia, Blood Clots, Easy bleeding, Easy bruising, Swollen glands Past Medical History - SOCIAL HISTORY Smoking Status: Current every day smoker - RESPIRATORY Hx Respiratory Disorders: Yes Hx Asthma: Yes - CARDIOVASCULAR Hx Cardio Disorders: No - NEURO Hx Neuro Disorders: Yes Hx Dizziness: Yes Hx Headaches: Yes - GI Hx GI Disorders: Yes Hx Celiac Disease: Yes Hx Reflux: Yes - Hx Genitourinary Disorders: Yes Comment:: follicular ovarian cyst, pt states she's in menopause - ENDOCRINE Hx Endocrine Disorders: Yes Hx Diabetes: Yes Hx Thyroid Disease: Yes Comment:: Adrenal insufficiency - MUSCULOSKELETAL Hx Musculoskeletal Disorders: No - PSYCH Hx Psych Problems: Yes Hx Anxiety: Yes Hx Depression: Yes - HEMATOLOGY/ONCOLOGY Hx Hematology/Oncology Disorders: No Family Medical History Any Significant Family History?: Yes Family Hx Comment (NOT TO BE USED IN PLACE OF ITEMS BELOW): Grandmother, Uncle and Aunt- brain aneurysm Physical Exam - General General Appearance: Alert, Oriented x3, Cooperative, Mild distress - Head Head exam: Normal inspection - Eye Eye exam: Normal appearance, PERRL, EOMI Pupils: Normal accommodation - ENT ENT exam: Normal exam, Mucous membranes moist, Normal external ear exam, Normal orophraynx, TM's normal bilaterally Ear exam: Normal external inspection. negative: External canal tenderness Nasal Exam: Normal inspection. negative: Discharge, Sinus tenderness Mouth exam: Normal external inspection, Tongue normal Teeth exam: Normal inspection. negative: Dental caries Throat exam: Tonsillar erythema. negative: Tonsillar exudate - Neck Neck exam: Normal inspection, Full ROM. negative: Tenderness - Respiratory Respiratory exam: Normal lung sounds bilaterally. negative: Respiratory distress - Cardiovascular Cardiovascular Exam: Regular rate, Normal rhythm, Normal heart sounds - GI/Abdominal GI/Abdominal exam: Soft, Normal bowel sounds. negative: Tenderness - Rectal Rectal exam: Deferred - exam: Deferred - Extremities Extremities exam: Normal inspection, Full ROM, Normal capillary refill. negative: Tenderness - Back Back exam: Reports: Normal inspection, Full ROM. Denies: Muscle spasm, Rash noted, Tenderness - Neurological Neurological exam: Alert, CN II-XII intact, Normal gait, Oriented X3 - Psychiatric Psychiatric exam: Normal affect, Normal mood - Skin Skin exam: Dry, Intact, Normal color, Warm Course Vital Signs 10/25/17 20:56 Temperature 97.6 F Pulse Rate [ 98 H Pulse Ox Probe] Respiratory 14 Rate Blood Pressure 142/97 [Left Arm] Pulse Ox 98 Disposition Disposition: Discharge Clinical Impression: Bronchitis Pharyngitis Qualifiers: Pharyngitis/tonsillitis etiology: unspecified etiology Qualified Code(s): J02.9 - Acute pharyngitis, unspecified Pneumonia Qualifiers: Pneumonia type: due to unspecified organism Laterality: left Lung location: lower lobe of lung Qualified Code(s): J18.1 - Lobar pneumonia, unspecified organism Disposition: Home, Self-Care Condition: (1) Good Instructions: Acute Bronchitis (ED), Pharyngitis (ED), Community Acquired Pneumonia (ED) Additional Instructions: stop amoxicillin. follow up with family doctor. return sooner if worse. do not take zofran when taking zithromax Prescriptions: Azithromycin [Zithromax] 250 mg PO DAILY #6 tab Forms: Patient Portal Access Quality - Quality Measures Quality Measures: N/A - Blood Pressure Screening Does Patient Have Any of the Following: No Blood Pressure Classification: Hypertensive Reading Systolic Measurement: 142 Diastolic Measurement: 97 Screening for High Blood Pressure: < First Hypertensive BP, F/U Documented > [ G8950] First Hypertensive Follow-up Interventions: Follow-up with rescreen GT 1 day and LT 4 weeks.
[2017-10-25] MEDS ORDERED: IBUPROFEN 600 MG TABLET PO ONE (22:03)
--- NOTE | 2017-10-26 21:50 | RADIOLOGY REPORT ---
EXAM: CHEST 2 VIEWS HISTORY: PRODUCTIVE COUGH WITH HEMOPTYSIS. WHEEZING. TECHNIQUE: Upright PA and lateral views of the chest. COMPARISON: CT abdomen and pelvis without contrast dated 08/14/2017. FINDINGS: The heart is nonenlarged and no pulmonary venous hypertension is seen. There are linear opacities within the lateral left lung base, new in the interval consistent with atelectasis or less likely infiltrate. The lungs and pleural spaces are otherwise clear. IMPRESSION: NEW PLATE-LIKE OPACITIES IN THE LATERAL LEFT LUNG BASE, LIKELY RELATING TO ATELECTASIS OR LESS LIKELY INFILTRATE. THE LUNGS AND PLEURAL SPACES ARE OTHERWISE CLEAR. JOB NUMBER: [id number] MTDD
== END 2017-10-25 22:25 | disposition home or self-care (01) ==
LOC: ER 20:48
DX: J18.1 Lobar pneumonia, unspecified organism (principal); J20.9 Acute bronchitis, unspecified; J02.9 Acute pharyngitis, unspecified; R13.10 Dysphagia, unspecified; F17.210 Nicotine dependence, cigarettes, uncomplicated
CPT/HCPCS: 99283 ×2; 71046; J7512

== ENCOUNTER 2017-12-13 21:27 | Emergency (ER) | payer MEDICAID ==
--- NOTE | 2017-12-13 21:46 | Emergency Department Record ---
History of Present Illness - General Chief complaint: Pain Stated complaint: HIP PAIN Time Seen by Provider: 12/13/17 21:40 Source: Patient Mode of Arrival: Ambulatory Limitations: No limitations - History of Present Illness Initial comments: 32 yo female presents to ED for evaluation of a re-injury of her right hip 1 week ago. Patient reports that she fell down 13 stairs 3 months ago, underwent MRI of the right hips demonstrating a possible labral tear. Patient is scheduled to see an orthopedist at [facility] in January. Patient reports that 1 week ago, her daughter came up from behind her hugging her in a department store, reports that she fell again onto her right hip and has had persistent pain since that time. Patient has been ambulatory with pain since that time. Patient did call her PCP who told her to come to the ED for evaluation following her injury. MD Complaint: Joint pain Onset/Timin -: Week(s) Location: Right History of Same: Yes -: Yes Arthralgia Radiation: Proximal Quality: Aching Consistency: Constant Improves with: Nothing Worsens with: Nothing Associated Symptoms: Denies other symptoms - Related Data Previous Rx's Medication Instructions Recorded Azithromycin [Zithromax] 250 mg PO DAILY #6 tab 10/25/17 Allergies Allergy/AdvReac Type Severity Reaction Status Date / Time No Known Drug Allergies Allergy Verified 12/13/17 21:33 Review of Systems Constitutional: Denies: Chills, Fever, Malaise, Night sweats Eyes: Denies: Eye discharge, Eye pain ENT: Denies: Congestion, Ear pain, Epistaxis Respiratory: Denies: Cough, Dyspnea Cardiovascular: Denies: Chest pain, Dyspnea on exertion Endocrine: Denies: Fatigue, Heat or cold intolerance Gastrointestinal: Denies: Abdominal pain, Nausea, Vomiting Genitourinary: Denies: Incontinence, Retention Musculoskeletal: Reports: Arthralgia. Denies: Back pain Skin: Denies: Bruising, Change in color Neurological: Denies: Abnormal gait, Confusion, Headache, Seizure Psychiatric: Denies: Anxiety Hematological/Lymphatic: Denies: Anemia, Blood Clots Past Medical History - SOCIAL HISTORY Smoking Status: Current every day smoker - RESPIRATORY Hx Respiratory Disorders: Yes Hx Asthma: Yes - CARDIOVASCULAR Hx Cardio Disorders: No - NEURO Hx Neuro Disorders: Yes Hx Dizziness: Yes Hx Headaches: Yes - GI Hx GI Disorders: Yes Hx Celiac Disease: Yes Hx Reflux: Yes - Hx Genitourinary Disorders: Yes Comment:: follicular ovarian cyst, pt states she's in menopause - ENDOCRINE Hx Endocrine Disorders: Yes Hx Diabetes: Yes Hx Thyroid Disease: Yes Comment:: Adrenal insufficiency - MUSCULOSKELETAL Hx Musculoskeletal Disorders: No - PSYCH Hx Psych Problems: Yes Hx Anxiety: Yes Hx Depression: Yes - HEMATOLOGY/ONCOLOGY Hx Hematology/Oncology Disorders: No Family Medical History Family Hx Comment (NOT TO BE USED IN PLACE OF ITEMS BELOW): Grandmother, Uncle and Aunt- brain aneurysm Physical Exam - General General Appearance: Alert, Oriented x3, Cooperative, No acute distress Limitations: No limitations - Head Head exam: Atraumatic, Normocephalic, Normal inspection Head exam detail: negative: Abrasion, Contusion, Gaming's sign, General tenderness, Hematoma, Laceration - Eye Eye exam: Normal appearance. negative: Conjunctival injection, Periorbital swelling, Periorbital tenderness, Scleral icterus - ENT Ear exam: negative: Auricular hematoma, Auricular trauma Nasal Exam: negative: Active bleeding, Discharge, Dried blood, Foreign body Mouth exam: negative: Drooling, Laceration, Muffled voice, Tongue elevation - Neck Neck exam: Normal inspection. negative: Meningismus, Tenderness - Respiratory Respiratory exam: Normal lung sounds bilaterally. negative: Rales, Respiratory distress, Rhonchi, Stridor - Cardiovascular Cardiovascular Exam: Regular rate, Normal rhythm, Normal heart sounds - GI/Abdominal GI/Abdominal exam: Soft. negative: Rebound, Rigid, Tenderness - Rectal Rectal exam: Deferred - exam: Deferred - Extremities Extremities exam: Tenderness (TTP over the proximal right hip, no shortening or external rotation is present.). negative: Calf tenderness, Pedal edema - Back Back exam: Denies: CVA tenderness (R), CVA tenderness (L) - Neurological Neurological exam: Alert, Normal gait, Oriented X3 - Psychiatric Psychiatric exam: Normal affect, Normal mood - Skin Skin exam: Normal color. negative: Abrasion Type of lesion: negative: abrasion Course Vital Signs 12/13/17 21:32 Temperature 98 F Pulse Rate [ 100 H Pulse Ox Probe] Respiratory 24 Rate Blood Pressure 142/97 [Left Arm] Pulse Ox 96 - Reevaluation(s) Reevaluation #1: 12/13/17 22:00 MRI right hip 11/15/2007: Abnormal appearance of the right hip suspicious for fracture involving the trabeculae of the proximal diaphysis. This extends to the cortex without derek cotical disuption. There may be reactive change present. Greater trochanter bursitis and reactive tissue edematous changes R>L Possible small partial tear of the superior lateral acetabulum on the Right. Previous records reviewed from [facility], patient was seen at [facility] 12/09/17 for Abdominal pain and Right hip pain but left before being imaged. Patient is also concerned about her chronic abdominal pain findings, reports "I have a hernia, and it's getting worse". Patient has been seen and evaluated by General Surgery Dr. St who recommends conservative management at this time. Patient's last CT Abdomen and Pelvis at [facility] was reviewed 08/21/17: No acute process Small fat-containing umbilical hernia is present. I did discuss with the patient that she does have a small fat-containing umbilical hernia WITHOUT the involvement of bowel, and these hernias are usually benign in nature. Patient was updated on these findings, will order CT Imaging of the right hip for further evaluation. Patient reports taking Midol for her pain symptoms prior to arrival, states "my pain is severe, I need something for pain now". Patient was offered Motrin and Toradol, patient refused. Upon re-entering the room to discuss the patient's findings, she is standing up , bent over to miner pick her fountain beverage in no distress. Nursing staff has been present for all interactions with the patient. Reevaluation #2: 12/13/17 23:21 CT Right Femur: No acute fracture 4 mm cyst within the lateral right femoral neck No evidence for avascular necrosis, no obvious joint effusion. No soft tissue hematoma, no fluid collection. Patient was updated her CT imaging result, offered a copy of her [facility] report, patient declined stating 'I will get a second opinion". Patient then eloped from the ED without her discharge paperwork with steady gait. Disposition Disposition: Other (eloped) Clinical Impression: Chronic pain Qualifiers: Chronic pain type: other chronic pain Qualified Code(s): G89.29 - Other chronic pain Disposition: Home, Self-Care Condition: (2) Stable Instructions: Chronic Pain (ED) Forms: Patient Portal Access Time of Disposition: 23:25 Quality - Quality Measures Quality Measures: N/A - Blood Pressure Screening Does Patient Have Any of the Following: No Blood Pressure Classification: Pre-Hypertensive BP Reading Systolic Measurement: 130 Diastolic Measurement: 78 Screening for High Blood Pressure: < Pre-Hypertensive BP, F/U Documented > [ G8950] Pre-Hypertensive Follow-up Interventions: Referral to alternative/primary care provider.
--- NOTE | 2017-12-15 08:45 | CT SCAN REPORT ---
EXAM: CT SCAN OF THE RIGHT HIP HISTORY: PATIENT HAS PAIN IN THE RIGHT HIP. TECHNIQUE: Serial axial CT scan of the right hip was performed at 2.5 mm intervals from the iliac bone down to the proximal femur without the use of intravenous contrast. Sagittal and coronal reconstructions are provided. A comparison CT scan of the abdomen and pelvis dated 08/14/17 is provided. FINDINGS: There is no CT evidence of a fracture or dislocation of the right hip. There is a 3.9 mm subchondral cyst identified at the junction of the anterior aspect of the right femoral head and neck. This finding is unchanged with respect to the prior examination. This finding may be related to femoral acetabular impingement. Clinical correlation is recommended. Soft tissue windows demonstrate the visualized urinary bladder and uterus to be unremarkable. The patient has a 2 cm nonspecific right ovarian cyst. The other visualized surrounding muscles and tendons of the right hip appear unremarkable. The neurovascular structures are unremarkable. IMPRESSION: NO CT EVIDENCE OF AN ACUTE PROCESS INVOLVING THE RIGHT HIP. SUBCHONDRAL CYST IS NOTED AT THE JUNCTION OF THE ANTERIOR ASPECT OF THE RIGHT FEMORAL HEAD AND NECK WHICH MAY BE RELATED TO FEMORAL ACETABULAR IMPINGEMENT. IF THERE IS FURTHER CLINICAL CONCERN THEN AN MRI OF THE RIGHT HIP CAN BE OBTAINED FOR FURTHER EVALUATION. JOB NUMBER: [id number] MTDD
== END 2017-12-13 23:25 | disposition home or self-care (01) ==
LOC: ER 21:27
DX: G89.21 Chronic pain due to trauma (principal); M25.551 Pain in right hip; F17.210 Nicotine dependence, cigarettes, uncomplicated; E11.9 Type 2 diabetes mellitus without complications; Z79.84 Long term (current) use of oral hypoglycemic drugs
CPT/HCPCS: 99283; 99284

== ENCOUNTER 2017-12-24 18:30 | Emergency (ER) | payer MEDICAID ==
[2017-12-24] MEDS ORDERED: IPRATROPIUM/ALBUTEROL (0.5MG/3MG) NEB INH ONE (19:59)
--- NOTE | 2017-12-24 19:59 | Emergency Department Record ---
History of Present Illness - General Chief complaint: Cold Stated complaint: CONGESTION Time Seen by Provider: 12/24/17 18:46 Source: Patient Mode of Arrival: Ambulatory Limitations: No limitations - History of Present Illness Initial comments: prod green cough. congestion. sob Onset/Timin -: Week(s) Severity: Moderate Severity scale (1-10): 6 Quality: Aching, Burning Consistency: Constant, Intermittent Context- Ear: Recent illness Associated Symptoms: Cough, Rhinorrhea - Related Data Previous Rx's Medication Instructions Recorded Azithromycin [Zithromax] 250 mg PO DAILY #6 tab 12/24/17 Allergies Allergy/AdvReac Type Severity Reaction Status Date / Time No Known Drug Allergies Allergy Verified 12/24/17 19:07 Travel Screening - Travel/Exposure Within Last 30 Days Have you traveled within the last 30 days?: No - Travel/Exposure Within Last Year Have you traveled outside the [place] in the last year?: No - Additonal Travel Details Have you been exposed to anyone with a communicable illness?: No - Travel Symptoms Symptom Screening: None Review of Systems Reviewed: No additional complaints except as noted below Constitutional: Reports: As per HPI. Denies: Chills, Fever, Malaise, Night sweats, Weakness, Weight change Eyes: Reports: As per HPI. Denies: Eye discharge, Eye pain, Photophobia, Vision change ENT: Reports: As per HPI. Denies: Congestion, Dental pain, Ear pain, Epistaxis , Hearing loss, Throat pain Respiratory: Reports: As per HPI. Denies: Cough, Dyspnea, Hemoptysis, Stridor, Wheezes Cardiovascular: Reports: As per HPI. Denies: Arrhythmia, Chest pain, Dyspnea on exertion, Edema, Murmurs, Orthopnea, Palpitations, Paroxysmal nocturnal dyspnea, Rheumatic Fever, Syncope Endocrine: Reports: As per HPI. Denies: Fatigue, Heat or cold intolerance, Polydipsia, Polyuria Gastrointestinal: Reports: As per HPI. Denies: Abdominal pain, Constipation, Diarrhea, Hematemesis, Hematochezia, Melena, Nausea, Vomiting Genitourinary: Reports: As per HPI. Denies: Abnormal menses, Discharge, Dyspareunia, Dysuria, Frequency, Hematuria, Incontinence, Retention, Urgency Musculoskeletal: Reports: As per HPI. Denies: Arthralgia, Back pain, Gout, Joint swelling, Myalgia, Neck pain Skin: Reports: As per HPI. Denies: Bruising, Change in color, Change in hair/ nails, Lesions, Pruritus, Rash Neurological: Reports: As per HPI. Denies: Abnormal gait, Confusion, Headache, Numbness, Paresthesias, Seizure, Tingling, Tremors, Vertigo, Weakness Psychiatric: Reports: As per HPI. Denies: Anxiety, Auditory hallucinations, Depression, Homicidal thoughts, Suicidal thoughts, Visual hallucinations Hematological/Lymphatic: Reports: As per HPI. Denies: Anemia, Blood Clots, Easy bleeding, Easy bruising, Swollen glands Past Medical History - SOCIAL HISTORY Smoking Status: Current every day smoker Alcohol Use: None Drug Use: None - RESPIRATORY Hx Respiratory Disorders: Yes Hx Asthma: Yes - CARDIOVASCULAR Hx Cardio Disorders: No - NEURO Hx Neuro Disorders: Yes Hx Dizziness: Yes Hx Headaches: Yes - GI Hx GI Disorders: Yes Hx Celiac Disease: Yes Hx Reflux: Yes Comment:: umbilical hernia - Hx Genitourinary Disorders: Yes Comment:: follicular ovarian cyst, pt states she's in menopause - ENDOCRINE Hx Endocrine Disorders: Yes Hx Diabetes: Yes Hx Thyroid Disease: Yes Comment:: Adrenal insufficiency, pituitary gland dysfuction - MUSCULOSKELETAL Hx Musculoskeletal Disorders: Yes Comment:: issues for being on cortizol for long period of time - PSYCH Hx Psych Problems: Yes Hx Anxiety: Yes Hx Depression: Yes - HEMATOLOGY/ONCOLOGY Hx Hematology/Oncology Disorders: No Family Medical History Any Significant Family History?: Yes Family Hx Comment (NOT TO BE USED IN PLACE OF ITEMS BELOW): Grandmother, Uncle and Aunt- brain aneurysm Physical Exam - General General Appearance: Alert, Oriented x3, Cooperative, Mild distress - Head Head exam: Normal inspection - Eye Eye exam: Normal appearance, PERRL Pupils: Normal accommodation - ENT ENT exam: Normal exam, Mucous membranes moist, Normal external ear exam, Normal orophraynx, TM's normal bilaterally Ear exam: Normal external inspection. negative: External canal tenderness Nasal Exam: Normal inspection. negative: Discharge, Sinus tenderness Mouth exam: Normal external inspection, Tongue normal Teeth exam: Normal inspection. negative: Dental caries Throat exam: Normal inspection. negative: Tonsillar erythema, Tonsillar exudate - Neck Neck exam: Normal inspection, Full ROM. negative: Tenderness - Respiratory Respiratory exam: Wheezes. negative: Respiratory distress - Cardiovascular Cardiovascular Exam: Normal rhythm, Normal heart sounds, Tachycardia - GI/Abdominal GI/Abdominal exam: Soft, Normal bowel sounds. negative: Tenderness - Rectal Rectal exam: Deferred - exam: Deferred - Extremities Extremities exam: Normal inspection, Full ROM, Normal capillary refill. negative: Tenderness - Back Back exam: Reports: Normal inspection, Full ROM. Denies: Muscle spasm, Rash noted, Tenderness - Neurological Neurological exam: Alert, Normal gait, Oriented X3, Reflexes normal - Psychiatric Psychiatric exam: Normal affect, Normal mood - Skin Skin exam: Dry, Intact, Normal color, Warm Course Vital Signs 12/24/17 18:59 Temperature 97.6 F Pulse Rate 122 H Respiratory 20 Rate Blood Pressure 100/77 Pulse Ox 95 Disposition Disposition: Discharge Clinical Impression: Bronchitis Pneumonia Qualifiers: Pneumonia type: due to unspecified organism Laterality: left Lung location: lower lobe of lung Qualified Code(s): J18.1 - Lobar pneumonia, unspecified organism Disposition: Home, Self-Care Condition: (1) Good Instructions: Acute Bronchitis (ED) Additional Instructions: follow up with family doctor. return sooner if worse. do not take zofran when taking zithromax Prescriptions: Azithromycin [Zithromax] 250 mg PO DAILY #6 tab Forms: Patient Portal Access Quality - Quality Measures Quality Measures: N/A - Blood Pressure Screening Does Patient Have Any of the Following: No Blood Pressure Classification: Normal BP Reading Systolic Measurement: 100 Diastolic Measurement: 77 Screening for High Blood Pressure: < Normal BP, F/U Not Required > [G8783]
== END 2017-12-24 20:56 | disposition home or self-care (01) ==
LOC: ER 18:30
DX: J18.1 Lobar pneumonia, unspecified organism (principal); J20.9 Acute bronchitis, unspecified; R06.02 Shortness of breath; F17.210 Nicotine dependence, cigarettes, uncomplicated
CPT/HCPCS: 71046; 94640; 99283; 99284

== ENCOUNTER 2018-03-22 00:02 | Emergency (ER) | payer MEDICAID ==
[2018-03-22] MEDS ORDERED: 0.9 % SODIUM CHLORIDE 1,000 ML BAG IV ONE ×2 (00:24→01:22)
--- NOTE | 2018-03-22 00:25 | Emergency Department Record ---
History of Present Illness - General Stated Complaint: PNEUMONIA Time Seen by Provider: 03/22/18 00:12 Source: Patient - History of Present Illness Initial Comments: The patient states that she is worried that she has pneumonia because her chest is sore and when walking she gets short of breath, and she gets hot and cold. She has a myriad of complaints, many of which are non-medical and improbable: "I 've lost 50 pounds in the past 4 weeks." She also states she is very dehydrated , but has not vomited or had diarrhea. She does have nausea. MD Complaint: Cough, Nasal congestion, Sinus pain - Related Data Previous Rx's Medication Instructions Recorded Azithromycin [Zithromax] 250 mg PO DAILY #6 tab 12/24/17 Allergies Allergy/AdvReac Type Severity Reaction Status Date / Time No Known Drug Allergies Allergy Verified 12/24/17 19:07 Review of Systems Reviewed: No additional complaints except as noted below Constitutional: Reports: As per HPI. Denies: Chills, Fever, Malaise, Night sweats, Weakness, Weight change Eyes: Reports: As per HPI. Denies: Eye discharge, Eye pain, Photophobia, Vision change ENT: Reports: As per HPI. Denies: Congestion, Dental pain, Ear pain, Epistaxis , Hearing loss, Throat pain Respiratory: Reports: As per HPI. Denies: Cough, Dyspnea, Hemoptysis, Stridor, Wheezes Cardiovascular: Reports: As per HPI. Denies: Arrhythmia, Chest pain, Dyspnea on exertion, Edema, Murmurs, Orthopnea, Palpitations, Paroxysmal nocturnal dyspnea, Rheumatic Fever, Syncope Endocrine: Reports: As per HPI. Denies: Fatigue, Heat or cold intolerance, Polydipsia, Polyuria Gastrointestinal: Reports: As per HPI. Denies: Abdominal pain, Constipation, Diarrhea, Hematemesis, Hematochezia, Melena, Nausea, Vomiting Genitourinary: Reports: As per HPI. Denies: Abnormal menses, Discharge, Dyspareunia, Dysuria, Frequency, Hematuria, Incontinence, Retention, Urgency Musculoskeletal: Reports: As per HPI. Denies: Arthralgia, Back pain, Gout, Joint swelling, Myalgia, Neck pain Skin: Reports: As per HPI. Denies: Bruising, Change in color, Change in hair/ nails, Lesions, Pruritus, Rash Neurological: Reports: As per HPI. Denies: Abnormal gait, Confusion, Headache, Numbness, Paresthesias, Seizure, Tingling, Tremors, Vertigo, Weakness Psychiatric: Reports: As per HPI. Denies: Anxiety, Auditory hallucinations, Depression, Homicidal thoughts, Suicidal thoughts, Visual hallucinations Hematological/Lymphatic: Reports: As per HPI. Denies: Anemia, Blood Clots, Easy bleeding, Easy bruising, Swollen glands Past Medical History - SOCIAL HISTORY Smoking Status: Current every day smoker Drug Use: None - RESPIRATORY Hx Respiratory Disorders: Yes Hx Asthma: Yes - CARDIOVASCULAR Hx Cardio Disorders: No - NEURO Hx Neuro Disorders: Yes Hx Dizziness: Yes Hx Headaches: Yes - GI Hx GI Disorders: Yes Hx Celiac Disease: Yes Hx Reflux: Yes Comment:: umbilical hernia - Hx Genitourinary Disorders: Yes Comment:: follicular ovarian cyst, pt states she's in menopause - ENDOCRINE Hx Endocrine Disorders: Yes Hx Diabetes: Yes Hx Thyroid Disease: Yes Comment:: Adrenal insufficiency, pituitary gland dysfuction - MUSCULOSKELETAL Hx Musculoskeletal Disorders: Yes Comment:: issues for being on cortizol for long period of time - PSYCH Hx Psych Problems: Yes Hx Anxiety: Yes Hx Depression: Yes - HEMATOLOGY/ONCOLOGY Hx Hematology/Oncology Disorders: No Family Medical History Family Hx Comment (NOT TO BE USED IN PLACE OF ITEMS BELOW): Grandmother, Uncle and Aunt- brain aneurysm Physical Exam - General General Appearance: Alert, Oriented x3, Cooperative, No acute distress - Head Head exam: Normal inspection - Eye Eye exam: Normal appearance, PERRL Pupils: Normal accommodation - ENT ENT exam: Normal exam, Mucous membranes moist, Normal external ear exam, Normal orophraynx, TM's normal bilaterally Ear exam: Normal external inspection. negative: External canal tenderness Nasal Exam: Normal inspection. negative: Discharge, Sinus tenderness Mouth exam: Normal external inspection, Tongue normal Teeth exam: Normal inspection. negative: Dental caries Throat exam: Normal inspection. negative: Tonsillar erythema, Tonsillar exudate - Neck Neck exam: Normal inspection, Full ROM. negative: Tenderness - Respiratory Respiratory exam: Normal lung sounds bilaterally. negative: Respiratory distress - Cardiovascular Cardiovascular Exam: Normal rhythm, Normal heart sounds, Tachycardia - GI/Abdominal GI/Abdominal exam: Soft, Normal bowel sounds. negative: Tenderness - Rectal Rectal exam: Deferred - exam: Deferred - Extremities Extremities exam: Normal inspection, Full ROM, Normal capillary refill. negative: Calf tenderness, Pedal edema, Tenderness - Back Back exam: Reports: Normal inspection, Full ROM. Denies: CVA tenderness (R), CVA tenderness (L), Muscle spasm, Rash noted, Tenderness - Neurological Neurological exam: Alert, CN II-XII intact, Normal gait, Oriented X3, Reflexes normal. negative: Motor sensory deficit - Psychiatric Psychiatric exam: Normal affect, Normal mood - Skin Skin exam: Dry, Intact, Normal color, Warm Course - Reevaluation(s) Reevaluation #1: 03/22/18 01:49 Compared prior labs with her labs tonight. Her elevated liver enzymes are not new. There is no new abnormality. Klor given to correct low potassium. Patient was told she may not go out and smoke, however on her own she took her IV pole and went outdoors to smoke. Reevaluation #2: Lengthy discussion with patient included need for her to stop smoking as she has had multiple pneumonias in the past. She has no desire to quit smoking. She was informed of her mildly elevated liver functions that are chronic, found on prior studies several months ago. She was also informed of hematuria. She agrees to follow up with her PCP Dr. Alysa Sutherland in [place] this week for these above reasons and for help to stop smoking. All questions answered. 03/22/18 03:11 Medical Decision Making - Management Options MDM Management: No Additional Work-up Planned - Data Complexity MDM Data: Labs Ordered and/or Reviewed, X-Ray Ordered and/or Reviewed (CXR Neg per radiologist vrad.) - Lab Data Result diagrams: 03/22/18 00:30 03/22/18 00:30 Disposition Clinical Impression: Hypokalemia, Elevated LFTs, Dehydration Hematuria Qualifiers: Hematuria type: unspecified type Qualified Code(s): R31.9 - Hematuria, unspecified Disposition: Home, Self-Care Condition: (1) Good Instructions: Hematuria (ED), Dehydration (ED), How to Stop Smoking (ED), Secondhand Smoke Exposure in Children (ED) Additional Instructions: Follow up with your PCP Dr. Alysa Sutherland next week for recheck, and follow up of hematuria, elevated liver functions, assistance in smoking cessation. Increase your fluid intake. Quality - Quality Measures Quality Measures: N/A - Blood Pressure Screening Does Patient Have Any of the Following: No Blood Pressure Classification: Pre-Hypertensive BP Reading Systolic Measurement: 125 Diastolic Measurement: 87 Screening for High Blood Pressure: < Normal BP, F/U Not Required > [G8727]
[2018-03-22 00:59] LABS: BASO % 0.1 % (0-6); EOS % 0.4 % (0-6); GRAN % 58.4 % (47-80); HEMATOCRIT 45.1 % (35.0-47.0); HEMOGLOBIN 15.2 gm/dl (11.6-16.0); LYMPH % 33.4 % (16-45); MEAN CELL VOLUME 94.5 fl (81-97); MEAN CORPUSCULAR HEMOGLOBIN 31.9 pg (27-33); MEAN CORPUSCULAR HGB CONC 33.7 g/dl (32-36); MEAN PLATELET VOLUME 9.5 fl (7.4-10.4); MONO % 7.7 % (0-9); PLATELET COUNT 322 K/uL (130-400); RED BLOOD COUNT 4.77 M/uL (3.80-5.40); RED CELL DISTRIBUTION WIDTH 12.5 % (11.5-14.5); WHITE BLOOD COUNT W/O DIFF 12.9 K/uL (4.2-12.2)
[2018-03-22 01:11] LABS: BLOOD UREA NITROGEN 8 mg/dL (6-20); CREATININE 0.7 mg/dL (0.5-0.9); EST GLOMERULAR FILTRATION RATE > 60 mL/min
[2018-03-22 01:12] LABS: TOTAL PROTEIN 7.2 g/dL (6.6-8.7)
[2018-03-22 01:14] LABS: GLUCOSE,RANDOM 123 mg/dL (74-109)
[2018-03-22 01:17] LABS: ALB/GLOB RATIO 1.7 (1.1-1.8); ALBUMIN 4.5 g/dL (4.0-5.0); ALKALINE PHOSPHATASE 117 U/L (35-104); ALT/SGPT 35 U/L (<33); AST/SGOT 40 U/L (10.0-35.0)
[2018-03-22] MEDS ORDERED: POTASSIUM CHLORIDE 20 MEQ TABLET PO ONE (01:22)
[2018-03-22] MEDS ORDERED: ONDANSETRON 4 MG ODT TABLET SL ONE (01:49)
[2018-03-22 02:03] LABS: URINE APPEARANCE CLEAR; URINE BILIRUBIN NEGATIVE (NEGATIVE); URINE BLOOD LARGE (NEGATIVE); URINE COLOR YELLOW; URINE GLUCOSE (UA) NEGATIVE (NEGATIVE); URINE KETONE NEGATIVE (NEGATIVE); URINE LEUKOCYTE ESTERASE NEGATIVE (NEGATIVE); URINE NITRITE NEGATIVE (NEGATIVE); URINE PROTEIN NEGATIVE (NEGATIVE)
[2018-03-22 02:06] LABS: HCG,QUALITATIVE URINE NEGATIVE (NEGATIVE)
[2018-03-22 02:10] LABS: URINE BACTERIA NONE SEEN; URINE EPITHELIAL CELLS 0 - 2 (FEW); URINE RBC 21 - 35 (NONE SEEN); URINE WBC NONE SEEN (0-2/hpf)
[2018-03-22 02:11] LABS: URINE MUCUS MODERATE
[2018-03-22] MEDS ORDERED: NICOTINE 21 MG/24 HOUR PATCH TD SCH (02:15)
--- NOTE | 2018-03-23 09:31 | RADIOLOGY REPORT ---
EXAM: CHEST, TWO VIEWS HISTORY: EVALUATE FOR PNEUMONIA. TECHNIQUE: Two views of the chest were obtained. Comparison: 12/24/17. FINDINGS: The heart is not enlarged. There appears to be atelectasis or scarring within the right middle lobe. No focal consolidation or pleural effusion. IMPRESSION: NO ACUTE PROCESS. ATELECTASIS OR SCARRING RIGHT MIDDLE LOBE. JOB NUMBER: [id number] MTDD
== END 2018-03-22 03:45 | disposition home or self-care (01) ==
LOC: ER 00:02
DX: E87.6 Hypokalemia (principal); E86.0 Dehydration; R94.5 Abnormal results of liver function studies; R06.02 Shortness of breath; R31.9 Hematuria, unspecified; R11.0 Nausea; E11.9 Type 2 diabetes mellitus without complications; F17.210 Nicotine dependence, cigarettes, uncomplicated
CPT/HCPCS: 71046; 80053; 81001; 81025; 85025; 96360; 96361; 99284; J7030